=== PATIENT | male | born 1930 | race African-American/Black ===

== ENCOUNTER 2017-06-30 21:06 | Emergency (ER) | payer MEDICARE, MEDICAID ==
[~2017-06-30] VITALS: Ht 162.6 cm; Wt 61.3 kg
[~2017-06-30 21:06] MED LIST: DETROL LA4 MG OR; FLOMAX0.4 M1 OR; LIPITOR20 M1 PO; METO50TA52 PO; NORVASC5 MG PO; PLAVIX75 MG PO; RAPAFLO8 MG PO; SB ASA LOW81 MG PO; TOPROL XL25 MG PO; ULTRAM50 M1 PO; ULTRAM50 MG OR; ZOCOR20 MG OR
[2017-06-30 23:03] LABS: HEMATOCRIT 42.9 % (39.0-50.0); HEMOGLOBIN 13.9 g/dl (14.0-18.0); IMMATURE GRANULOCYTES 0.3 % (0.0-1.0); MEAN CELL VOLUME 91.3 fL CALC (80.0-100.0); MEAN CORPUSCULAR HGB 29.6 pG CALC (26.0-32.0); MEAN CORPUSCULAR HGB CONC 32.4 g/L CALC (32.0-36.0); NEUT# 2.43 thou/uL (1.82-7.42); RED BLOOD COUNT 4.7 mill/uL (4.70-6.10); RED CELL DISTRI WIDTH 12.6 % (11.5-15.5)
[2017-06-30 23:13] LABS: ALBUMIN 4.5 g/dL (3.2-5.0); ALKALINE PHOSPHATASE 81 u/l (38-126); AMYLASE 154 u/l (30-110); ANION GAP 14 (6-22 (CALC)); BUN 20 mg/dL (8-23); BUN/CREATININE RATIO 16 (12-20 (CALC)); CALCIUM 9.7 mg/dL (8.4-10.2); CARBON DIOXIDE 33 mmol/l (22-30); CHLORIDE 97 mmol/l (95-108); CREATININE 1.3 mg/dL (0.7-1.3); GFR 52 ML/MIN (>=60 (CALC)); GFR FOR AFR.AMER. > 60 ML/MIN (>=60 (CALC)); GLUCOSE 111 mg/dL (82-115); LIPASE 64 u/l (23-300); POTASSIUM 5.1 mmol/l (3.5-5.1); SGOT/AST 45 u/l (19-48); SGPT/ALT 31 u/l (11-66); SODIUM 140 mmol/l (137-146); TOTAL PROTEIN 8.1 g/dL (6.3-8.2)
[2017-06-30 23:40] VITALS: BP 139/90
== END 2017-06-30 23:40 | disposition left against medical advice (07) ==
LOC: ED 21:06
PROVIDERS: Emergency Medicine
DX: R79.89 Other specified abnormal findings of blood chemistry (principal); I10 Essential (primary) hypertension; K59.00 Constipation, unspecified; Z91.19 Patient's noncompliance with other medical treatment and regimen; R94.31 Abnormal electrocardiogram [ECG] [EKG]; I25.2 Old myocardial infarction

== ENCOUNTER 2018-03-27 19:15 | Emergency (ER) | payer MEDICARE, MEDICAID ==
[~2018-03-27] VITALS: Ht 162.6 cm; Wt 59.1 kg
[2018-03-27] MEDS ORDERED: DOXAZOSIN MESYLA2 MG PO (19:35)
[2018-03-27] MEDS ORDERED: TRAMADOL HCL50 MG PO (19:35)
[2018-03-27] MEDS ORDERED: METO50TA52 PO (19:36)
[2018-03-27 19:45] LABS: HEMATOCRIT 37.8 % (39.0-50.0); IMMATURE GRANULOCYTES 0.4 % (0.0-1.0); MEAN CELL VOLUME 95.5 fL CALC (80.0-100.0); MEAN CORPUSCULAR HGB 29.8 pG CALC (26.0-32.0); MEAN CORPUSCULAR HGB CONC 31.2 g/L CALC (32.0-36.0); NEUT# 1.51 thou/uL (1.82-7.42); RED BLOOD COUNT 3.96 mill/uL (4.70-6.10); RED CELL DISTRI WIDTH 13.2 % (11.5-15.5)
[2018-03-27 19:46] LABS: HEMOGLOBIN 11.8 g/dl (14.0-18.0)
[2018-03-27 19:58] LABS: ALBUMIN 3.8 g/dL (3.2-5.0); ALKALINE PHOSPHATASE 58 u/l (38-126); ANION GAP 8 (6-22 (CALC)); BILIRUBIN, TOTAL 0.4 mg/dL (0.0-1.4); BUN 18 mg/dL (8-23); BUN/CREATININE RATIO 15 (12-20 (CALC)); CARBON DIOXIDE 37 mmol/l (22-30); CHLORIDE 101 mmol/l (95-108); CREATININE 1.2 mg/dL (0.7-1.3); GFR 57 ML/MIN (>=60 (CALC)); GFR FOR AFR.AMER. > 60 ML/MIN (>=60 (CALC)); POTASSIUM 4.1 mmol/l (3.5-5.1); SGOT/AST 31 u/l (19-48); SGPT/ALT 35 u/l (11-66); SODIUM 142 mmol/l (137-146); TOTAL PROTEIN 7.2 g/dL (6.3-8.2)
[2018-03-27 20:04] LABS: ACT PARTIAL THROMBO TIME 24.3 SECONDS (20.0-32.5); D-DIMER 3.48 mg/L (0.19-0.60); PROTHROMBIN TIME 11.6 SECONDS (9.0-12.5)
[2018-03-27 20:10] LABS: MYOGLOBIN 83 ng/mL (0 - 121)
[2018-03-27] MEDS ORDERED: PREDNISONE10 MG PO (21:34)
[2018-03-27] MEDS ORDERED: VENTOLIN HFA IN (21:34)
[2018-03-27 22:16] VITALS: BP 184/104
== END 2018-03-27 22:17 | disposition home or self-care (01) ==
LOC: ED 19:15
PROVIDERS: Family Medicine
DX: J06.9 Acute upper respiratory infection, unspecified (principal); J98.01 Acute bronchospasm; I10 Essential (primary) hypertension; I48.91 Unspecified atrial fibrillation; M19.90 Unspecified osteoarthritis, unspecified site; N40.0 Benign prostatic hyperplasia without lower urinary tract symptoms; Z86.73 Personal history of transient ischemic attack (TIA), and cerebral infarction without residual deficits; Z95.5 Presence of coronary angioplasty implant and graft; R06.02 Shortness of breath
CPT/HCPCS: Q9967

== ENCOUNTER 2018-06-10 05:08 | Emergency (ER) | payer MEDICARE, MEDICAID ==
[~2018-06-10] VITALS: Ht 160 cm; Wt 61.4 kg
[~2018-06-10 05:08] MED LIST changes: +DOXAZOSIN MESYLA2 MG PO; +PREDNISONE10 MG PO; +TRAMADOL HCL50 MG PO; +VENTOLIN HFA IN
--- NOTE | 2018-06-10 05:25 | NUR ---
BREATHING TREATMENT GIVEN.
[2018-06-10 05:57] LABS: HEMATOCRIT 36.1 % (39.0-50.0); HEMOGLOBIN 11.5 g/dl (14.0-18.0); IMMATURE GRANULOCYTES 0.3 % (0.0-5.0); MEAN CELL VOLUME 93.3 fL CALC (80.0-100.0); MEAN CORPUSCULAR HGB 29.7 pG CALC (26.0-32.0); MEAN CORPUSCULAR HGB CONC 31.9 g/L CALC (32.0-36.0); NEUT# 1.47 thou/uL (1.82-7.42); RED BLOOD COUNT 3.87 mill/uL (4.70-6.10); RED CELL DISTRI WIDTH 13.1 % (11.5-15.5)
[2018-06-10 06:11] LABS: ALKALINE PHOSPHATASE 58 u/l (38-126); ANION GAP 13 (6-22 (CALC)); BILIRUBIN, TOTAL 0.3 mg/dL (0.0-1.4); BUN 34 mg/dL (8-23); BUN/CREATININE RATIO 19 (12-20 (CALC)); CARBON DIOXIDE 34 mmol/l (22-30); CHLORIDE 99 mmol/l (95-108); CREATININE 1.8 mg/dL (0.7-1.3); GFR 36 ML/MIN (>=60 (CALC)); GFR FOR AFR.AMER. 44 ML/MIN (>=60 (CALC)); SGOT/AST 29 u/l (19-48); SGPT/ALT 36 u/l (11-66); SODIUM 141 mmol/l (137-146); TOTAL PROTEIN 7.2 g/dL (6.3-8.2)
[2018-06-10 06:23] LABS: MYOGLOBIN 93 ng/mL (0 - 121)
[2018-06-10] MEDS ORDERED: MEDDOSEPAK PO (06:54)
[2018-06-10] MEDS ORDERED: CEPHALEXIN500 M1 PO (06:54)
[2018-06-10 06:56] VITALS: BP 154/78
== END 2018-06-10 07:21 | disposition home or self-care (01) ==
LOC: ED 05:08
PROVIDERS: Emergency Medicine
DX: J44.1 Chronic obstructive pulmonary disease with (acute) exacerbation (principal); I10 Essential (primary) hypertension; M19.90 Unspecified osteoarthritis, unspecified site; I48.91 Unspecified atrial fibrillation; Z95.5 Presence of coronary angioplasty implant and graft; Z86.73 Personal history of transient ischemic attack (TIA), and cerebral infarction without residual deficits

== ENCOUNTER 2018-11-01 07:14 | Emergency (ER) | payer MEDICARE, MEDICAID ==
[~2018-11-01] VITALS: Ht 160 cm; Wt 70.5 kg
[~2018-11-01 07:14] MED LIST changes: +CEPHALEXIN500 M1 PO; +MEDDOSEPAK PO
[2018-11-01 07:56] LABS: HEMATOCRIT 37.2 % (39.0-50.0); HEMOGLOBIN 11.9 g/dl (14.0-18.0); IMMATURE GRANULOCYTES 0.2 % (0.0-5.0); MEAN CELL VOLUME 94.4 fL CALC (80.0-100.0); MEAN CORPUSCULAR HGB 30.2 pG CALC (26.0-32.0); NEUT# 2.86 thou/uL (1.82-7.42); RED BLOOD COUNT 3.94 mill/uL (4.70-6.10); RED CELL DISTRI WIDTH 12.7 % (11.5-15.5)
[2018-11-01 08:13] LABS: ALBUMIN 4.1 g/dL (3.2-5.0); ALKALINE PHOSPHATASE 72 u/l (38-126); ANION GAP 13 (6-22 (CALC)); BILIRUBIN, TOTAL 0.5 mg/dL (0.0-1.4); BUN 20 mg/dL (8-23); BUN/CREATININE RATIO 13 (12-20 (CALC)); CARBON DIOXIDE 29 mmol/l (22-30); CHLORIDE 102 mmol/l (95-108); CREATININE 1.6 mg/dL (0.7-1.3); GFR 41 ML/MIN (>=60 (CALC)); GFR FOR AFR.AMER. 50 ML/MIN (>=60 (CALC)); POTASSIUM 4.2 mmol/l (3.5-5.1); SGOT/AST 28 u/l (19-48); SODIUM 140 mmol/l (137-146); TOTAL PROTEIN 7.5 g/dL (6.3-8.2)
[2018-11-01 09:37] VITALS: BP 157/73
== END 2018-11-01 09:48 | disposition home or self-care (01) ==
LOC: ED 07:14
PROVIDERS: Emergency Medicine
DX: T36.1X1A Poisoning by cephalosporins and other beta-lactam antibiotics, accidental (unintentional), initial encounter (principal); I10 Essential (primary) hypertension; M19.90 Unspecified osteoarthritis, unspecified site; I48.91 Unspecified atrial fibrillation; I69.354 Hemiplegia and hemiparesis following cerebral infarction affecting left non-dominant side; Z95.5 Presence of coronary angioplasty implant and graft

== ENCOUNTER 2019-02-06 23:10 | Emergency (ER) | payer MEDICARE, MEDICAID ==
[~2019-02-06] VITALS: Ht 160 cm; Wt 67.0 kg
[2019-02-07 00:02] LABS: HEMATOCRIT 36.4 % (39.0-50.0); HEMOGLOBIN 11.3 g/dl (14.0-18.0); IMMATURE GRANULOCYTES 0.3 % (0.0-5.0); MEAN CORPUSCULAR HGB 28.3 pG CALC (26.0-32.0); PLATELET COUNT 174 thou/uL (130-400); RED CELL DISTRI WIDTH 13.2 % (11.5-15.5)
[2019-02-07 00:22] LABS: ALBUMIN 3.9 g/dL (3.2-5.0); BILIRUBIN, TOTAL 0.3 mg/dL (0.0-1.4); CREATININE 1.6 mg/dL (0.7-1.3); POTASSIUM 4.6 mmol/l (3.5-5.1); TOTAL PROTEIN 7.1 g/dL (6.3-8.2)
[2019-02-07 00:28] LABS: MANUAL DIFFERENTIAL YES
[2019-02-07 00:29] LABS: OTHER CELL TYPE 3; PLATELET ESTIMATE NORMAL
[2019-02-07] MEDS ORDERED: FINASTERIDE5 MG PO (00:30)
[2019-02-07] MEDS ORDERED: SPIRONOLACT25 MG PO (00:30)
[2019-02-07] MEDS ORDERED: FUROSEMIDE20 MG PO (00:31)
[2019-02-07] MEDS ORDERED: LOSARTAN POT50 MG PO (00:32)
[2019-02-07] MEDS ORDERED: MONTELUKAST SOD10 MG PO (00:32)
[2019-02-07] MEDS ORDERED: CARVEDILOL25 MG PO (00:33)
[2019-02-07] MEDS ORDERED: PRAVASTATIN SOD20 MG PO (00:33)
[2019-02-07 04:53] LABS: URINE BILIRUBIN - DIPSTICK NEGATIVE (NEGATIVE); URINE BLOOD DIPSTICK MODERATE (NEGATIVE); URINE COLOR YELLOW; URINE GLUCOSE - DIPSTICK NEGATIVE (NEGATIVE); URINE KETONE NEGATIVE (NEGATIVE); URINE LEUK ESTERASE NEGATIVE (NEGATIVE); URINE NITRITE - DIPSTICK NEGATIVE (Negative); URINE PH 5.5 (4.5-8.0); URINE PROTEIN - DIPSTICK NEGATIVE (NEG-TRACE); URINE UROBILINOGEN - DIPSTICK 0.2 E.U./dL (0.2)
[2019-02-07 05:04] LABS: URINE BACTERIA RARE hpf; URINE SQUAMOUS EPITHELIAL CELL RARE EPI/hpf (0-FEW); URINE WBC 0-2 WBC/hpf (0-5)
[2019-02-07 05:32] VITALS: BP 178/92
== END 2019-02-07 05:30 | disposition home or self-care (01) ==
LOC: ED 23:10
PROVIDERS: Emergency Medicine
DX: R53.1 Weakness (principal); N28.9 Disorder of kidney and ureter, unspecified; R50.9 Fever, unspecified; I48.91 Unspecified atrial fibrillation; I10 Essential (primary) hypertension; N40.0 Benign prostatic hyperplasia without lower urinary tract symptoms; Z95.5 Presence of coronary angioplasty implant and graft

== ENCOUNTER 2019-02-14 19:18 | Emergency (ER) | payer MEDICARE, MEDICAID ==
[~2019-02-14] VITALS: Ht 160 cm; Wt 84.0 kg
[~2019-02-14 19:18] MED LIST changes: +CARVEDILOL25 MG PO; +FINASTERIDE5 MG PO; +FUROSEMIDE20 MG PO; +LOSARTAN POT50 MG PO; +MONTELUKAST SOD10 MG PO; +PRAVASTATIN SOD20 MG PO; +SPIRONOLACT25 MG PO
[2019-02-14 19:55] LABS: HEMATOCRIT 36.3 % (39.0-50.0); HEMOGLOBIN 11.1 g/dl (14.0-18.0); IMMATURE GRANULOCYTES 0.8 % (0.0-5.0); MEAN CORPUSCULAR HGB 27.8 pG CALC (26.0-32.0); MEAN CORPUSCULAR HGB CONC 30.6 g/L CALC (32.0-36.0); NEUT# 1.89 thou/uL (1.82-7.42); RED BLOOD COUNT 3.99 mill/uL (4.70-6.10); RED CELL DISTRI WIDTH 12.9 % (11.5-15.5)
[2019-02-14 20:38] LABS: ALBUMIN 3.6 g/dL (3.2-5.0); BILIRUBIN, TOTAL 0.4 mg/dL (0.0-1.4); CREATININE 1.7 mg/dL (0.7-1.3); POTASSIUM 4.2 mmol/l (3.5-5.1); TOTAL PROTEIN 6.6 g/dL (6.3-8.2)
[2019-02-14 20:53] LABS: URINE BILIRUBIN - DIPSTICK NEGATIVE (NEGATIVE); URINE BLOOD DIPSTICK TRACE-INTACT (NEGATIVE); URINE COLOR YELLOW; URINE GLUCOSE - DIPSTICK NEGATIVE (NEGATIVE); URINE KETONE NEGATIVE (NEGATIVE); URINE LEUK ESTERASE NEGATIVE (NEGATIVE); URINE NITRITE - DIPSTICK NEGATIVE (Negative); URINE PH 6.5 (4.5-8.0); URINE PROTEIN - DIPSTICK NEGATIVE (NEG-TRACE); URINE UROBILINOGEN - DIPSTICK 0.2 E.U./dL (0.2)
[2019-02-14 20:54] LABS: BARBITURATES NEGATIVE (NEGATIVE); COCAINE NEGATIVE (NEGATIVE); METHADONE NEGATIVE (NEGATIVE); OXCYCODONE NEGATIVE (NEGATIVE); TETRAHYDROCANNABIONOL NEGATIVE (NEGATIVE); TRICYLIC ANTIDEPRESSANTS NEGATIVE (NEGATIVE)
[2019-02-14 21:05] VITALS: BP 148/75
== END 2019-02-14 21:20 | disposition home or self-care (01) ==
LOC: ED 19:18
PROVIDERS: Family Medicine
DX: R40.4 Transient alteration of awareness (principal); R94.31 Abnormal electrocardiogram [ECG] [EKG]; I10 Essential (primary) hypertension; I48.91 Unspecified atrial fibrillation; I69.354 Hemiplegia and hemiparesis following cerebral infarction affecting left non-dominant side

== ENCOUNTER 2019-02-17 13:37 | Inpatient (IN) | payer MEDICARE, MEDICAID ==
[~2019-02-17] VITALS: Ht 160 cm; Wt 68.6 kg
[2019-02-17 14:07] LABS: HEMATOCRIT 36.5 % (39.0-50.0); HEMOGLOBIN 11.4 g/dl (14.0-18.0); IMMATURE GRANULOCYTES 0.8 % (0.0-5.0); MEAN CELL VOLUME 89.2 fL CALC (80.0-100.0); MEAN CORPUSCULAR HGB 27.9 pG CALC (26.0-32.0); MEAN CORPUSCULAR HGB CONC 31.2 g/L CALC (32.0-36.0); NEUT# 19.72 thou/uL (1.82-7.42); RED BLOOD COUNT 4.09 mill/uL (4.70-6.10); RED CELL DISTRI WIDTH 13.3 % (11.5-15.5)
[2019-02-17 14:32] LABS: ALBUMIN 3.6 g/dL (3.2-5.0); CREATININE 2.5 mg/dL (0.7-1.3); MAGNESIUM 2.5 mg/dL (1.6-2.3); POTASSIUM 3.8 mmol/l (3.5-5.1); TOTAL PROTEIN 6.9 g/dL (6.3-8.2)
[2019-02-17 14:35] LABS: BILIRUBIN, TOTAL 0.6 mg/dL (0.0-1.4)
[2019-02-17 14:36] LABS: URINE BILIRUBIN - DIPSTICK NEGATIVE (NEGATIVE); URINE BLOOD DIPSTICK LARGE (NEGATIVE); URINE COLOR YELLOW; URINE GLUCOSE - DIPSTICK NEGATIVE (NEGATIVE); URINE KETONE NEGATIVE (NEGATIVE); URINE PROTEIN - DIPSTICK TRACE mg/dL (NEG-TRACE); URINE UROBILINOGEN - DIPSTICK 0.2 E.U./dL (0.2)
[2019-02-17 14:48] LABS: URINE LEUK ESTERASE MODERATE (NEGATIVE); URINE NITRITE - DIPSTICK POSITIVE (Negative)
[2019-02-17 14:49] LABS: URINE WBC 50-100 WBC/hpf (0-5)
[2019-02-17 14:50] LABS: URINE BACTERIA FEW hpf
[2019-02-17 15:03] LABS: TSH, 3RD GENERATION 0.56 uIU/mL (0.47 - 4.68)
[2019-02-17 16:54] VITALS: BP 172/98
[2019-02-17 18:32] VITALS: BP 170/86
[2019-02-17 19:09] VITALS: BP 156/79
[2019-02-17 23:40] VITALS: BP 155/83
[2019-02-18] VITALS (7 sets, daily range): BP systolic 154–180; BP diastolic 72–95
[2019-02-18 05:43] LABS: ALBUMIN 3.4 g/dL (3.2-5.0); BILIRUBIN, TOTAL 0.6 mg/dL (0.0-1.4); CREATININE 2.2 mg/dL (0.7-1.3); MAGNESIUM 2.5 mg/dL (1.6-2.3); POTASSIUM 3.8 mmol/l (3.5-5.1); TOTAL PROTEIN 6.5 g/dL (6.3-8.2)
[2019-02-18 05:44] LABS: IMMATURE GRANULOCYTES 0.7 % (0.0-5.0); MEAN CELL VOLUME 89.2 fL CALC (80.0-100.0); MEAN CORPUSCULAR HGB 28.2 pG CALC (26.0-32.0); MEAN CORPUSCULAR HGB CONC 31.6 g/L CALC (32.0-36.0); NEUT# 15.98 thou/uL (1.82-7.42); RED BLOOD COUNT 4.26 mill/uL (4.70-6.10); RED CELL DISTRI WIDTH 13.3 % (11.5-15.5)
[2019-02-19] VITALS (7 sets, daily range): BP systolic 129–175; BP diastolic 59–92
[2019-02-19 05:10] LABS: HEMATOCRIT 37.3 % (39.0-50.0); HEMOGLOBIN 11.6 g/dl (14.0-18.0); IMMATURE GRANULOCYTES 0.5 % (0.0-5.0); MEAN CELL VOLUME 90.1 fL CALC (80.0-100.0); MEAN CORPUSCULAR HGB CONC 31.1 g/L CALC (32.0-36.0); PLATELET COUNT 172 thou/uL (130-400); RED BLOOD COUNT 4.14 mill/uL (4.70-6.10); RED CELL DISTRI WIDTH 13.2 % (11.5-15.5)
[2019-02-19 05:41] LABS: BILIRUBIN, TOTAL 0.7 mg/dL (0.0-1.4); CREATININE 1.7 mg/dL (0.7-1.3); MAGNESIUM 2.4 mg/dL (1.6-2.3); POTASSIUM 3.9 mmol/l (3.5-5.1); TOTAL PROTEIN 6.2 g/dL (6.3-8.2)
[2019-02-19 06:02] LABS: MANUAL DIFFERENTIAL YES
[2019-02-19 06:03] LABS: BAND 1 % (0-8); OTHER CELL TYPE 6
[2019-02-20] VITALS (7 sets, daily range): BP systolic 150–189; BP diastolic 74–97
[2019-02-20 05:30] LABS: HEMATOCRIT 37.1 % (39.0-50.0); HEMOGLOBIN 11.7 g/dl (14.0-18.0); IMMATURE GRANULOCYTES 0.5 % (0.0-5.0); MEAN CELL VOLUME 89.4 fL CALC (80.0-100.0); MEAN CORPUSCULAR HGB 28.2 pG CALC (26.0-32.0); MEAN CORPUSCULAR HGB CONC 31.5 g/L CALC (32.0-36.0); NEUT# 4.62 thou/uL (1.82-7.42); RED BLOOD COUNT 4.15 mill/uL (4.70-6.10); RED CELL DISTRI WIDTH 13.2 % (11.5-15.5)
[2019-02-20 06:00] LABS: ALBUMIN 2.9 g/dL (3.2-5.0); BILIRUBIN, TOTAL 0.7 mg/dL (0.0-1.4); CREATININE 1.6 mg/dL (0.7-1.3); MAGNESIUM 2.3 mg/dL (1.6-2.3); POTASSIUM 3.8 mmol/l (3.5-5.1)
[2019-02-21 06:11] LABS: CREATININE 1.4 mg/dL (0.7-1.3); POTASSIUM 3.8 mmol/l (3.5-5.1)
[2019-02-21 07:24] VITALS: BP 157/87
[2019-02-21 14:55] VITALS: BP 183/104
[2019-02-21 15:37] VITALS: BP 142/73
[2019-02-21 19:12] VITALS: BP 143/70
[2019-02-22 04:00] VITALS: BP 157/80
[2019-02-22 05:14] LABS: HEMATOCRIT 33.9 % (39.0-50.0); HEMOGLOBIN 10.7 g/dl (14.0-18.0); IMMATURE GRANULOCYTES 1.2 % (0.0-5.0); MEAN CELL VOLUME 87.8 fL CALC (80.0-100.0); MEAN CORPUSCULAR HGB 27.7 pG CALC (26.0-32.0); MEAN CORPUSCULAR HGB CONC 31.6 g/L CALC (32.0-36.0); NEUT# 2.55 thou/uL (1.82-7.42); RED BLOOD COUNT 3.86 mill/uL (4.70-6.10)
[2019-02-22 05:36] LABS: CREATININE 1.4 mg/dL (0.7-1.3); MAGNESIUM 2.2 mg/dL (1.6-2.3); POTASSIUM 3.5 mmol/l (3.5-5.1)
[2019-02-22 08:02] VITALS: BP 145/80
[2019-02-22 14:43] VITALS: BP 154/75
[2019-02-22 19:40] VITALS: BP 158/77
[2019-02-23] VITALS (7 sets, daily range): BP systolic 130–168; BP diastolic 69–88
[2019-02-23 15:33] LABS: URINE BILIRUBIN - DIPSTICK NEGATIVE (NEGATIVE); URINE BLOOD DIPSTICK NEGATIVE (NEGATIVE); URINE COLOR YELLOW; URINE GLUCOSE - DIPSTICK NEGATIVE (NEGATIVE); URINE KETONE NEGATIVE (NEGATIVE); URINE LEUK ESTERASE NEGATIVE (Negative); URINE NITRITE - DIPSTICK NEGATIVE (Negative); URINE PROTEIN - DIPSTICK NEGATIVE (NEG-TRACE); URINE SPECIFIC GRAVITY 1.015; URINE UROBILINOGEN - DIPSTICK 0.2 E.U./dL (0.2)
[2019-02-23 15:40] LABS: URINE CLARITY CLEAR
[2019-02-24 04:09] VITALS: BP 164/82
[2019-02-24 05:36] LABS: HEMATOCRIT 35.5 % (39.0-50.0); HEMOGLOBIN 11.2 g/dl (14.0-18.0); IMMATURE GRANULOCYTES 2.5 % (0.0-5.0); MEAN CELL VOLUME 87.4 fL CALC (80.0-100.0); MEAN CORPUSCULAR HGB 27.6 pG CALC (26.0-32.0); MEAN CORPUSCULAR HGB CONC 31.5 g/L CALC (32.0-36.0); NEUT# 3.52 thou/uL (1.82-7.42); RED BLOOD COUNT 4.06 mill/uL (4.70-6.10); RED CELL DISTRI WIDTH 13.2 % (11.5-15.5)
[2019-02-24 06:00] LABS: ALBUMIN 2.9 g/dL (3.2-5.0); ALKALINE PHOSPHATASE 74 u/l (38-126); ANION GAP 12 (6-22 (CALC)); BUN 22 mg/dL (8-23); BUN/CREATININE RATIO 17 (12-20 (CALC)); CARBON DIOXIDE 23 mmol/l (22-30); CHLORIDE 107 mmol/l (95-108); CREATININE 1.3 mg/dL (0.7-1.3); GFR 52 ML/MIN (>=60 (CALC)); GFR FOR AFR.AMER. > 60 ML/MIN (>=60 (CALC)); POTASSIUM 3.5 mmol/l (3.5-5.1); SODIUM 138 mmol/l (137-146); TOTAL PROTEIN 6.1 g/dL (6.3-8.2)
[2019-02-24 06:01] LABS: BILIRUBIN, TOTAL 0.4 mg/dL (0.0-1.4); SGOT/AST 40 u/l (19-48)
[2019-02-24 09:15] VITALS: BP 138/70
[2019-02-24 14:15] VITALS: BP 138/77
[2019-02-24 16:00] VITALS: BP 159/78
[2019-02-24 19:57] VITALS: BP 159/78
== END 2019-02-24 20:00 | DRG 871 ==
LOC: ED 13:37 → ED-I 15:27 → ED 15:35 → MS2 15:36
PROVIDERS: Family Medicine; Nurse Practitioner Family; ADMIT Internal Medicine Nephrology; ATTEND Internal Medicine Nephrology
DX: A41.9 Sepsis, unspecified organism (principal); G93.41 Metabolic encephalopathy; N39.0 Urinary tract infection, site not specified; N17.9 Acute kidney failure, unspecified; I69.951 Hemiplegia and hemiparesis following unspecified cerebrovascular disease affecting right dominant side; G93.49 Other encephalopathy; R65.20 Severe sepsis without septic shock; I12.9 Hypertensive chronic kidney disease with stage 1 through stage 4 chronic kidney disease, or unspecified chronic kidney disease; N18.3 Chronic kidney disease, stage 3 (moderate); I69.398 Other sequelae of cerebral infarction; E86.0 Dehydration; I48.91 Unspecified atrial fibrillation; E78.5 Hyperlipidemia, unspecified; I25.10 Atherosclerotic heart disease of native coronary artery without angina pectoris; I27.20 Pulmonary hypertension, unspecified; D64.9 Anemia, unspecified; M19.90 Unspecified osteoarthritis, unspecified site; M89.8X9 Other specified disorders of bone, unspecified site; B96.4 Proteus (mirabilis) (morganii) as the cause of diseases classified elsewhere; Z95.5 Presence of coronary angioplasty implant and graft

== ENCOUNTER 2020-04-29 13:38 | Inpatient (IN) | payer MEDICARE, MEDICAID ==
[2020-04-29] VITALS (10 sets, daily range): BP systolic 108–163; BP diastolic 59–86
[~2020-04-29] VITALS: Ht 160 cm; Wt 59.0 kg
--- NOTE | 2020-04-29 13:38 | NUR ---
PATIENT TO ROOM VIA EMS STRETCHER. PT OPENS EYES TO VERBAL STIMULI.
--- NOTE | 2020-04-29 14:04 | NUR ---
PATIENT TO CT VIA STRETCHER.
--- NOTE | 2020-04-29 14:05 | NUR ---
PATIENT'S UNABLE TO RECONCILE MEDICATIONS AT THIS TIME.
[2020-04-29 14:12] LABS: HEMATOCRIT 32.7 % (39.0-50.0); HEMOGLOBIN 10.1 g/dl (14.0-18.0); IMMATURE GRANULOCYTES 0.4 % (0.0-5.0); MEAN CELL VOLUME 90.3 fL CALC (80.0-100.0); MEAN CORPUSCULAR HGB 27.9 pG CALC (26.0-32.0); MEAN CORPUSCULAR HGB CONC 30.9 g/dL CAL (32.0-36.0); NEUT# 2.61 thou/uL (1.82-7.42); RED BLOOD COUNT 3.62 mill/uL (4.70-6.10); RED CELL DISTRI WIDTH 14.2 % (11.5-15.5)
--- NOTE | 2020-04-29 14:20 | NUR ---
PT HISTORY DIFFICULT TO OBTAIN. REPORTS PT ATE BREAKFAST NORMALLY AT 0800 BUT THEN DID NOT WANT TO GET OUT OF BED WHEN SHE GOT HOME AFTER [place]ORMON. SHE CALLED THE AMBULANCE BECAUSE SHE COULD NOT GET HIM TO ANSWER HER AT 1300 AND THIS IS DIFFERENT THAN NORMAL. PT OPENS EYES TO PAINFUL STIMULI BUT DOES NOT FOLLOW FINGER WITH EYES. IS UNABLE TO FOLLOW INSTRUCTIONS FOR NIHSS. PT SKIN PINK WARM AND DRY. CHANGED TO GOWN. MONITORS IN PLACE
[2020-04-29 14:26] LABS: ALBUMIN 3.2 g/dL (3.2-5.0); ALKALINE PHOSPHATASE 84 u/l (38-126); BILIRUBIN, TOTAL 0.4 mg/dL (0.0-1.4); BUN 30 mg/dL (8-23); BUN/CREATININE RATIO 20 (12-20 (CALC)); CARBON DIOXIDE 30 mmol/l (22-30); CHLORIDE 98 mmol/l (95-108); CREATININE 1.5 mg/dL (0.7-1.3); ETHYL ALCOHOL 0 mg/dl (0-30); GFR 44 ML/MIN (>=60 (CALC)); GFR FOR AFR.AMER. 53 ML/MIN (>=60 (CALC)); LIPASE 145 u/l (23-300); SGOT/AST 30 u/l (19-48); TOTAL PROTEIN 6.2 g/dL (6.3-8.2)
[2020-04-29 14:27] LABS: ANION GAP 9 (6-22 (CALC)); POTASSIUM 3.8 mmol/l (3.5-5.1); SODIUM 133 mmol/l (137-146)
[2020-04-29 14:36] LABS: ACT PARTIAL THROMBO TIME 23.9 SECONDS (20.0-32.5); INTERNATIONAL NORMALIZED RATIO 1.1 RATIO (0.7-1.3); PROTHROMBIN TIME 10.7 SECONDS (9.0-12.5)
[2020-04-29 14:38] LABS: MYOGLOBIN 75 ng/mL (0 - 121)
--- NOTE | 2020-04-29 15:07 | NUR ---
CATH URINE SPECIMEN OBTAINED
[2020-04-29 15:18] LABS: URINE BILIRUBIN - DIPSTICK NEGATIVE (NEGATIVE); URINE BLOOD DIPSTICK NEGATIVE (NEGATIVE); URINE COLOR YELLOW; URINE GLUCOSE - DIPSTICK NEGATIVE (NEGATIVE); URINE KETONE NEGATIVE (NEGATIVE); URINE LEUK ESTERASE NEGATIVE (NEGATIVE); URINE NITRITE - DIPSTICK NEGATIVE (Negative); URINE PH 6.5 (4.5-8.0); URINE PROTEIN - DIPSTICK NEGATIVE (NEG-TRACE); URINE UROBILINOGEN - DIPSTICK 0.2 E.U./dL (0.2)
--- NOTE | 2020-04-29 16:31 | NUR ---
PHARMACY CONSULT ORDERED
--- NOTE | 2020-04-29 16:36 | NUR ---
PT OPENS EYES TO VERBAL STIMULI AND IS ORIENTED TO SELF. SKIN PINK WARM AND DRY. RESP UNLABORED.
--- NOTE | 2020-04-29 16:46 | NUR ---
REPORT CALLED TO [facility]
--- NOTE | 2020-04-29 17:00 | NUR ---
PT TAKEN VIA STRETCHER TO ICU. MONITOR IN PLACE
--- NOTE | 2020-04-29 17:00 | NUR ---
PT ADMITTED TO ICU BED 7 FROM ED WITH DX. CVA VIA STRETCHER. PT TRANSFERRED FROM STRETCHER TO BED BY STAFF. PT OPENS EYES, ALERT , ABLE TO FOLLOW SIMPLE COMMANDS LIKE SQUEEZE BILAT HANDS SOFTLY. PT NON-VERBAL, MAKES SOME NOISES BUT UNABLE TO DECERN WHAT IS SAYING. NSR ON TELEMETRY WITH OCCAS. PVC'S, HR 64. RESPIRATIONS EVEN/UNLABORED. SA02@97% RA. ABDOMEN SOFT/NON-TENDER, BSX4 ACTIVE. PT INC OF URINE WITH BRIEF IN PLACE, CDI. BUTTOCKS WITH DRESSING CDI. BED ALARM IN PLACE, PT ORIENTED TO BED, UNIT AND CALL LIGHT. WILL MONITOR CLOSELY.
--- NOTE | 2020-04-29 20:20 | NUR ---
PATIENT AWAKENS EASILY WHEN SPOKEN TO, PT ABLE TO FOLLOW SOME COMMANDS, SUCH , MIXER MACHINE FEEDER MY FINGERS, TAKE DEEP BREATHS, SHOW ME YOUR TEETH, PT IS NONVERBAL BUT IS ABLE TO NOD HEAD YES OR NO WHEN ASKED SIMPLE YES/NO QUESTIONS. PT DOES NOT FOLLOW MY FINGERS THOROUGHLY WHEN ASKED TO. PT DOES DO EYE CONTACT WHEN SPOKEN TO. NOTIFIED PATIENT HIS FRIEND FAITH HAD CALLED AND WANTED TO SPEAK TO HIM, I ASKED IF HE KNEW HER HE NODDED HEAD YES, I ASKED HIM IF HE COULD SPEAK TO HER HE NODDED HIS HEAD NO. DID OBSERVE LEFT ARM IS CONTRACTED AND DOES NOT MOVE IT WELL LEFT LEG. ASKED PATIENT IF HE WANTED TO TRY TO DRINK WATER, HE NODDED HEAD NO, I ASKED IF I COULD CLEAN HIS MOUTH WITH WATER AND SWABS, HE NODDED YES, HE DID ALLOW ME TO CLEAN HIS MOUTH. PT DOES DO FACIAL GRIMACES WHEN REPOSITIONING. PT WAS REPSOTIONED TO LEFT SIDE, HEELS ELEVATED AND HEEL PROTECTORS PLACED, PILLOW PLACED UN HEELS WELL. SB/SR WITH PVC'S NOTICED. IV X2 INTACT AND FUNCTIONING PROPERLY. NIH WAS PERFORMED, PT NOT ABLE TO FOLLOW THOROUGHLY, SOME ITEMS SCORED 0. NURSING ASSESSMENT PERFORMED. ON RA, SATS GREATER THAN 95%. NO SOB NOTED. CALL LLIGHT WITHIN REACH.
[2020-04-29 21:00] LABS: MAGNESIUM 2.3 mg/dL (1.6-2.3)
--- NOTE | 2020-04-29 21:44 | NUR ---
NOTIFIED DR IRVING PT REFUSED PO FLUIDS. NO IV FLUIDS NOW. NEW ORDERS RECEIVED FOR IV FLUIDS.
--- NOTE | 2020-04-29 22:30 | NUR ---
PT WAS REPOSITIONED. SCD'S INTACT. HEELS ELEVATED. IV FLUIDS INFUSING NOW. NEW BRIEF APPLIED. I ASKED PATIENT IF HE NEEDED ANYTHING, HE RESPONDED, "IF I NEED ANYTHING?" HE NODDED NO. PT IN NO ACUTE DISTRESS. NEURO CHECK PERFORMED.
[2020-04-30] VITALS (16 sets, daily range): BP systolic 132–183; BP diastolic 68–98
--- NOTE | 2020-04-30 00:24 | NUR ---
PATIENT AWAKENS EASILY WHEN SPOKEN TO. WHEN ASKED IF HE IS OKAY, HE RESPONDS, "I'M FINE." NEURO CHECK PERFORMED. PT IN NO ACUTE DISTRESS. CALL LIGHT WITHIN REACH.
--- NOTE | 2020-04-30 02:30 | NUR ---
PT REPOSITIONED. NEW BRIEF APPLIED. PT AWAKENS EASILY WHEN SPOKEN TO. PT YELLS, "WHAT ARE YOU DOING." I HAD EXPLAINED TO PT WE WERE REPOSITIONING HIM. SCD'S INTCAT, HEELS REMAIN ELEVATED. NEURO CHECK PERFORMED. CALL LIGHT WITHIN REACH.
--- NOTE | 2020-04-30 04:40 | NUR ---
PT REPOSITIONED. NO CHANGING NEEDED. PT DOES BECOME UPSET WHEN WE WAKE HIM UP, PT EXPLAINED EACH TIME HE NEEDS TO BE TURNED TO PREVENT ULCERS, HEELS ARE ELAVTED. SCD'S INTACT. WHEN ASKED HIM IF I CAN DO ANYTHING FOR HIM, HE NODS HIS HEAD NO. CALL LIGHT WITHIN REACH.
--- NOTE | 2020-04-30 06:27 | NUR ---
PT WAS REPOSITIONED. PT AWAKENS EASILY. NEURO CHECK PERFORMED. NO ACUTE DISTRESS SHOWN. CALL LIGHT WITHIN REACH.
--- NOTE | 2020-04-30 06:45 | NUR ---
RECIEVED REPORT FROM ALMA BACON. ASSUMED PT CARE.
--- NOTE | 2020-04-30 08:00 | NUR ---
PT RESTING IN BED, EYES CLOSED. SEE ASSESSMENT. WILL MONITOR.
--- NOTE | 2020-04-30 09:45 | NUR ---
DR. IRVING AT [facility] FOR ASSESSMENT AND TO DISCUSS PLAN OF CARE. NEW ORDERS RECIEVED.
--- NOTE | 2020-04-30 12:09 | NUR ---
PT RESTING IN BED, REPOSITIONED FOR COMFORT. RESPIRATIONS EVEN/UNLABORED. HEEL PROTECTORS REMAIN IN PLACE. WILL MONITOR.
--- NOTE | 2020-04-30 14:00 | NUR ---
pt repositioned, pericare and drsg change to buttocks. pt tolerated well. call light in reach. will monitor.
--- NOTE | 2020-04-30 16:00 | NUR ---
PT CALLED WITH THE CODE, UPDATE GIVEN. DUE TO CALL BACK IN THE AM TO UPDAT MED LIST WITH PHARMACY. PT RESTING IN BED WITH EYS CLOSED. REPOSITIONED. CALL LIGHT IN REACH. WILL MONITOR.
--- NOTE | 2020-04-30 18:06 | NUR ---
PT RESTING IN BED, REPOSTIONED. NO DISTRESS NOTED AT THIS TIME.
--- NOTE | 2020-04-30 19:45 | NUR ---
PATIENT IS AWAKE, ALERT AND ORIENTED TO NAME ONLY. HE DOES ANSWER BACK CLEARLY WHEN SPOKEN TO ALTHOUGH HE HAS AN ACCENT.MEND EXAM PERFORMED. PT IS ABLE TO FOLLOW MOST COMMANDS. HE IS ABLE TO LIFT R-ARM UP, HE TRIES TO LIFT HIS LEFT ARM UP, IT IS CONTRACTED, HE IS ABLE TO MOVE IT AND HAS A WEAK OPTICAL MANAGER BILATERALLY, PT ABLE TO MOVE HIS FEET/LEGS BUT CANNOT LIFT. WHEN I ASK PATIENT HOW HE IS DOING TODAY, HE RESPONDS, "HANGING IN THERE." I ASKED PT IF HE WANTED TO TRY TO DRINK SOME WATER TODAY WELL PUDDING HE NODDED YES. PT SAT IN HIGH RUBIO'S, PT WAS ABLE TO DRINK WATER AND EAT 2 SPOONS OF CHOCOLATE PUDDING WITHOUT ANY DIFFICULTY OR COUGHING. WHEN I ASKED HIM IF HE WANTED MORE HE NODDED NO AND RESPONDED, "I'M OKAY." PT REMAINNS IN HIGH RUBIO'S. MOTH CARE PROVIDED. PT DOES STILL HAVE A SPEECH EVAL PENDING. PASSED HIS BEDSIDE SWALLOW EVAL TONIGHT. PT REPSOITONED, HEEL PROTECTORS IN PLACE, SCD'S IN PLACE. FEET ELEVATED. IV X2 INTACT, IV FLUIDS INFUSING PROPERLY. ON RA, SATS GREATER THAN 95%, HE DOES NOTLIKE PULSE OX ON HIS FINGERS AND TAKES IT OFF. BP 180'S SYSTOLIC. WILL NOTIFY DOCTOR ERGONOMIST. SR ON TELEMETRY, NO PVC'S. DRESING ON BUTTOCKS IS CDI. WILL CONTINUE TO MONITOR.
--- NOTE | 2020-04-30 20:57 | NUR ---
NOTIFIED DR IRVING OF BP 160'S-180'S SYSTOLIC, AND PT PASSED BEDSIDE SWALLOW EVAL. NEW ORDERS RECEIVED, DR IRVING WOULD LIKE PERMISSIVE HYPERTENSION, CAN TREAT IF BP GREATER THAN 200 MMHG. SOFT MECHANICAL DIET ORDERED.
--- NOTE | 2020-04-30 22:35 | NUR ---
PT REPOSITIONED. NEURO CHECK PERFORMED. HOB 30 DEGREES. VS WNL. CALL LIGHT WITHIN REACH.
[2020-05-01] VITALS (14 sets, daily range): BP systolic 122–192; BP diastolic 65–93
--- NOTE | 2020-05-01 01:07 | NUR ---
PT REPSOITIONED. CHANGED BRIEF. FEET ELEVATED, HEEL PROTECTORS IN PLACE. AWAKENS EASILY WITH VERBAL STIMULI.
--- NOTE | 2020-05-01 05:12 | NUR ---
PT REPSOITIONED, CHANGED. HEELS ELEAVTED, HEEL PROTECTORS IN PLACE. BUTTOCKS SUODERM DRESSINGS CDI. NO ACUTE DISTRESS SHOWN. MOUTH CARE PROVIDED. PT ABLE TO DRINK WATER. CALL LIGHT WITHIN REACH.
[2020-05-01 06:33] LABS: HEMATOCRIT 36.6 % (39.0-50.0); IMMATURE GRANULOCYTES 0.3 % (0.0-5.0); MEAN CELL VOLUME 91.5 fL CALC (80.0-100.0); MEAN CORPUSCULAR HGB 27.5 pG CALC (26.0-32.0); MEAN CORPUSCULAR HGB CONC 30.1 g/dL CAL (32.0-36.0); NEUT# 4.9 thou/uL (1.82-7.42); RED CELL DISTRI WIDTH 14.1 % (11.5-15.5)
[2020-05-01 06:57] LABS: ANION GAP 9 (6-22 (CALC)); BUN 21 mg/dL (8-23); BUN/CREATININE RATIO 21 (12-20 (CALC)); CARBON DIOXIDE 23 mmol/l (22-30); CHLORIDE 110 mmol/l (95-108); GFR > 60 ML/MIN (>=60 (CALC)); GFR FOR AFR.AMER. > 60 ML/MIN (>=60 (CALC)); POTASSIUM 3.6 mmol/l (3.5-5.1); SODIUM 138 mmol/l (137-146)
[2020-05-01] MEDS ORDERED: COREG25 MG PO (08:09)
[2020-05-01] MEDS ORDERED: COZAAR50 MG PO (08:09)
[2020-05-01] MEDS ORDERED: FINASTERIDE5 MG PO (08:10)
[2020-05-01] MEDS ORDERED: PRAVASTATIN SOD20 MG PO (08:10)
--- NOTE | 2020-05-01 08:15 | NUR ---
ASSESSMENT COMPLETED. PT. ALERT TO SELF ONLY ALSO ABLE TO FOLLOW COMMANDS AT THIS TIME. LEFT ARM IS CONTRACTED WITH MINIMAL MOVEMENT WELL ONLY MINIMAL MOVEMENT TO LLE POST HX;CVA PER REPORT. PT. ABLE TO MOVE RUE AND RLE WITHOUT DIFFICULTIES. MD AT BEDSIDE. SCD'S IN PLACE TO BLE. IV SITES X2 PATENT. HEEL PROTECTORS IN PLACE. ENCOURAGED TO CALL FOR ANY NEEDS. CALL LIGHT IS IN REACH. WILL CONTINUE TO MONITOR.
--- NOTE | 2020-05-01 09:15 | NUR ---
ST WAS IN TO EVALUATE PT. AND REPORTS SHE IS UNSURE IF HE IS ASPIRATING OR NOT AND WOULD LIKE PT. TO GET A MODIFIED BARIUM SWALLOW ALTHOUGH WE DO NOT DO THESE HERE WELL PT. SHOULD ONLY HAVE WATER AFTER STRICT ORAL CARE AND RECOMMENDS NO PO PILLS WELL ALTERNATIVE NUTRITION. RELAYED THIS MESSAGE TO DR. SALVADOR AND SPOKE WITH RADIOLOGY AND THE ONLY TEST AVAILABLE IS A REGULAR BARIUM SWALLOW. PER OKAY TO ORDER REGULAR BARIUM SWALLOW AND HOLD MEDS AT THIS TIME. WILL PLACE ORDERS IN AND CARRY OUT ORDERS.
--- NOTE | 2020-05-01 09:51 | NUR ---
PT. DOWN TO US.
--- NOTE | 2020-05-01 11:16 | NUR ---
CALLED TWO TIMES WITH NO ANSWER; VOICEMAIL LEFT; WILL AWAIT RETURN PHONE CALL.
--- NOTE | 2020-05-01 11:17 | NUR ---
ST IN AT BEDSIDE AGAIN.
--- NOTE | 2020-05-01 12:45 | NUR ---
PT. DOWN TO MRI AT THIS TIME.
--- NOTE | 2020-05-01 12:59 | NUR ---
1255-PER MRI THEY ARE UNABLE TO DO MRI AT THIS TIME DUE TO PT. REPORTING HE HAS PREVIOULSY HAD BRAIN SURGERY; PT. IS A POOR HISTORIAN THOUGH AND PER CURER ACID DRUM WE WILL NEED TO WAIT UNTIL THE CAN COME IN AND GIVE ACCURATE REPORT OF PMH. ALSO PER RADIOLOGY THEY ARE UNABLE TO DO BARIUM SWALLOW TEST TODAY AND WILL HAVE TO WAIT UNTIL TOMORROW.SPOKE WITH ST AGAIN AND SHE REPORTS RECOMMENDING THE SAME DIET PREVIOUS AND IMAGING PREVIOUS. 1259- NOTIFIED DR. SALVADOR OF THE ABOVE NOTE. PER MD ONLY NEW ORDER IS TO TRY PT. ON THICKENED LIQUIDS AND MAY ADMINISTER PO MEDS. WILL CARRY OUT THESE ORDERS.
--- NOTE | 2020-05-01 13:41 | NUR ---
ATTEMPTED TO GIVE PT. AM MEDS NOW THAT OKAYED IT, PT. WOULD NOT OPEN HIS MOUTH AND REFUSED MEDS. HELD AT THIS TIME.
--- NOTE | 2020-05-01 15:00 | NUR ---
SPOKE WITH AND SHE REPORTS NO KNOWN BRAIN SURGERY DONE ON THIS PT.. IS ASKED TO COME IN TO SIGN PAPERWORK FOR MRI AND REPORTS SHE DOES NOT DRIVE SO SHE WILL HAVE TO CALL AND ASK HER YAZIDISM MEMBER FOR A RIDE AND SEE.
--- NOTE | 2020-05-01 16:15 | NUR ---
IN AT BEDSIDE AND AGAIN TELLING THE SAME STORY FOR WHEN PT. WAS IN [facility]. PER HER KNOWLEDGE PT. DOES NOT HAVE ANY METAL AND HAS NOT HAD ANY BRAIN/HEAD SURGERY. BIOMETRIC TECHNICIAN IN WITH PAPERWORK FOR PT. TO SIGN FOR MRI.
--- NOTE | 2020-05-01 17:15 | NUR ---
CBB AND LINENS CHANGED PER VEHICLE MODIFICATION TECHNICIAN. PT. ALSO CLEANED OF LARGE INCONTINENCE OF URINE. BIALTERAL HEELS ELEVATED.
--- NOTE | 2020-05-01 18:27 | NUR ---
PT. TOLERATED THICKENED LIQUIDS WITHOUT COUGHING OR SPO2 DROPPING.
--- NOTE | 2020-05-01 19:00 | NUR ---
RECEIVED REPORT. BEDRESTING. EYES CLOSED. TURNED AND REPORTITIONED. READILY WAKENS. FOLLOWS INSTRUCTIONS BUT HAS WEAK GRASPS. NO DIFFICULTY SWALLOWING NOTED. NO DROOLING. SBP LESS THAN 160. RESP EVEN AND NONLABORED. NO DISTRESS NOTED. NS INFUSING VA #20 IN RIGHT A/C. SITE APPEARS WNL. N/C PAIN AT SITE
--- NOTE | 2020-05-01 21:00 | NUR ---
TALKATIVE. TOOK HS MEDICATION WITH THICHENED LIQUIDS WELL. DID NOT LIKE SQ IN ABDOMEN. REPEATEDLY ASKED FOR AND WANTED TO KNOW WHERE MY CAR IS. HAS LIMITED USE OF LEFT EXTREMITIES AND HOLDS LEFT HAND WITH RIGHT HAND WHEN TURNING OR REPOSITIONING.
--- NOTE | 2020-05-01 23:00 | NUR ---
BEDRESTING. EYES CLOSED. RESP EVEN AND NONLABORED. NO DISTRESS NOTED
[2020-05-02] VITALS (11 sets, daily range): BP systolic 131–181; BP diastolic 56–90
--- NOTE | 2020-05-02 00:27 | NUR ---
BEDRESTING. COOPERATIVE. READILY AWAKENS WITH VERBAL STIMULI. KNOWS NAME AND DATE OF . ASKS ABOUT REGULARLY. UNSURE OF WHY HE IS IN HOSPITAL. REQUESTS TO GO HOME
--- NOTE | 2020-05-02 00:28 | NUR ---
BEDREST. MOVES UPPER EXTREMITIES AT TIMES. LITTLE MOVEMENT OF LOWER EXTREMITIES. SCD'S IN PLACE WITH HEEL PROTECTORS IN PLACE ON HEELS. PILLOW UNDER CALVES OF LEGS TO KEEP HEELS OFF MATTRESS. TAKES SMALL AMOUNTS OF THICK LIQUIDS FREE OF COUGH
--- NOTE | 2020-05-02 02:00 | NUR ---
BEDRESTING. RESP EVEN AND NONLABORED. READILY WAKENS ROUNDED ON AND WANTS TO GO HOME. SPEECH CLEAR
--- NOTE | 2020-05-02 04:00 | NUR ---
BEDRESTING. FOLLOWS MOST REQUESTS. SPEECH IS CLEAR. HAD REPORTED THAT SOMETIMES HE TALKS TO PEOPLE AND OTHER TIMES HE REMAINS SILENT-DEPENDING ON PATIENT'S MOOD
--- NOTE | 2020-05-02 06:13 | NUR ---
BEDRESTING. MOVES WHEN MOVED BY STAFF. NO DISTRESS NOTED AT THIS TIME
--- NOTE | 2020-05-02 06:33 | NUR ---
INCONTINENT OF URINE. DIAPER CHANGED AND REPOSITIONED. DUODERM REMAINS IN TACT ACROSS BUTTOCKS. PLAN FOR CHANGE TODAY PT TOLERATED ACTIVITY WELL
--- NOTE | 2020-05-02 07:15 | NUR ---
REPORT RECEIVED FROM ALMA TEAGUE. PT RESTING IN BED, FREE FROM DISTRESS. SAFETY PRECAUTIONS IN PLACE. WILL CONTINUE TO MONITOR
--- NOTE | 2020-05-02 11:20 | NUR ---
PHYSICAL THERAPY AT BEDSIDE
--- NOTE | 2020-05-02 11:26 | NUR ---
SPEECH THERAPY AT BEDSIDE
--- NOTE | 2020-05-02 12:08 | NUR ---
Dysphagia Therapy provided. Patient followed cues for lingual ROM exercises. Patient noted with increased lingual movement from prior day, and with lingual weakness. Patient initially tolerated therapeutic trials of thin liquid water without any s/s of aspiration and without any s/s of laryngeal penetration. However, he coughed 1x after swallow of thin liquid water via small, single sip from cup edge. SERVICE RESTORER EMERGENCY informed nurse. Nurse listened to patient's lung sounds. Patient swallowed all trials of honey thickened liquids without overt s/s of aspiration and without overt s/s of laryngeal penetration. 1 tsp portion of puree was trialed, and patient swallowed after delay without overt s/s of aspiration and without overt s/s of laryngeal penetration. Oral cavity was clear after all trials. O2 SATS were WFL throughout entire therapy session. Nurse listened to lung sounds again at end of dysphagia therapy session. Nurse reported they are providing patient with frequent oral care. (SERVICE RESTORER EMERGENCY had provided information that jello is not a thickened liquid at start of session). SERVICE RESTORER EMERGENCY recommended Modified Barium Swallow Study to be performed either at another facility or via mobile MBSS. Patient is currently on diet of honey thickened liquids only, and it seems appropriate to continue current diet as safely tolerated at this time.
--- NOTE | 2020-05-02 12:08 | NUR ---
PT TRANSPORTED VIA STRETCHER TO RADIOLOGY
--- NOTE | 2020-05-02 12:45 | NUR ---
PT RETURNING TO FLOOR VIA STRETCHER ACCOMPAINED BY STAFF. PT TRANSFERED FROM STRETCHER TO BED. PT CLEANED UP AND CHANGED. PT REPOSISTIONED. PT REFUSED LUNCH TRAY. SAFETY PRECAUTIONS IN PLACE. WILL CONTINUE TO MONITOR.
--- NOTE | 2020-05-02 14:35 | NUR ---
PT RESTIN IN BED, WITH EYES CLOSED. NO S/S OF DISTRESS AT THIS TIME. SAFETY PRECAUTIONS IN PLACE. WILL CONTINUE TO MONITOR.
--- NOTE | 2020-05-02 15:30 | NUR ---
MAYELA FROM [facility] CALL . PT SCHEDULED FOR A MODIFIED BARIUM SWALLOW STUDY TOMORROW BETWEEN 10:30 & 11:30 AM. PT WILL NEED TO BE BROUGHT OUT TO [facility]UCK VIA W/C WITH MASK INPLACE. FURTHER INSTRUCTION WILL BE SENT VIA FAX. FAX # PROVIDED. [employer] TO CALL IN AM WITH HOLDEN BARNETT.
--- NOTE | 2020-05-02 15:40 | NUR ---
PT OFF UNIT TO MRI VIA STRETCHER. REMAINS AT BEDSIDE.
--- NOTE | 2020-05-02 15:41 | NUR ---
PT note Patient was seen for bedside sitting. He has strong pelvic thrust and increased tone with effort to the LUE. He is contracted on the LUE due to the long standing strong tone. He is able to sit EOB and sit with SBA of 1 for 2 min. We have also been assessing his swallowing ability in conjunction with BRICK KILN WORKER and BRICK KILN WORKER is strongly recommending MBS which we have attempted to arange through a mobile service. As for his function, he is liited by high tone and pelvic thrust aking him essentially bed bound. His family has done well taking care of him but I would recommend ECF moving forward
--- NOTE | 2020-05-02 17:37 | NUR ---
AT BEDSIDE FEEDING PT.. ALL FLUIDS THICKENED AND PT'S IN HIGH FOWLERS.
--- NOTE | 2020-05-02 19:53 | NUR ---
BEDRESTING. DID NOT SPEAK TO ME AT THIS TIME. OPENED EYES TO VERBAL STIMULI. TOOK THICKENED FLUIDS WHEN GIVEN TO HIM SWALLOWING. NO COUGH OR DROOLING WITH FLUID INTAKE. ONLY TAKES VERY SMALL SIPS THEN HAS A CHEWING LIKE MOTION WITH MOUTH AND SWALLOWS. IV FLUIDS INFUSING AT 10ML/HR VIA #20 IN RIGHT A/C
--- NOTE | 2020-05-02 21:30 | NUR ---
BEDRESTING. LITTLE MOVEMENT INITIATED BY PATIENT. MOANS WHEN MOVED OR REPOSITIONED OR YEALLS OUT "WHERE ARE WE GOING?"
--- NOTE | 2020-05-02 23:30 | NUR ---
BEDRESTING. DRESSING ACROSS BUTTOCKS IS CLEAN/DRY/INTACT. POSITIONING SIDE TO SIDE TO RELEIVE PRESSURE ON THAT AREA
[2020-05-03] VITALS (11 sets, daily range): BP systolic 132–179; BP diastolic 59–87
--- NOTE | 2020-05-03 01:00 | NUR ---
DIAPER WET. CHANGED, CLEANED AND REPOSITIONED-TOLERATED WELL. COOPERATIVE WITH BEING ROLLED SIDE TO SIDE. HELD ONTO BED SIDERALES WHEN ROLLED. COOPERATIVE
--- NOTE | 2020-05-03 02:37 | NUR ---
BEDRESTING. RESP EVEN AND NONLABORED. NO DISTRESS NOTED
--- NOTE | 2020-05-03 04:00 | NUR ---
BEDRESTING. TOLERATES TURNING. NO DISTRESS NOTED
--- NOTE | 2020-05-03 06:00 | NUR ---
BEDRESTING. RESP EVEN AND NONLABORED. IV INFUSING AT 75ML/HR THROUGH #20 IN RIGHT A/C. DRINKS THICKENED FLUIDS OFFERED. URINATED X 1 DURNING NIGHT LAST NIGHT BUT WAS LARGE AMOUNT. SCD'S AND HEEL PROTECTORS REMAIN IN PLACE
--- NOTE | 2020-05-03 06:45 | NUR ---
RECIEVED REPORT FROM ALMA TEAGUE. ASSUMED PT CARE.
--- NOTE | 2020-05-03 06:48 | NUR ---
REPORT GIVEN. BEDRESTING. EYES CLOSED
--- NOTE | 2020-05-03 07:30 | NUR ---
PT ALERT TO SELF, STAFF MUST ANTICIPATE MOST NEEDS, PT MOSTLY NON-VERBAL, SR WITH FREQ PVC'S ON TELEMETRY, HR 64. RESPIRATIONS EVEN/UNLABORED, SAO2 @100% RA. LS CLEAR/DIMINISHED. ABDOMEN SOFT, NON-TENDER, BSX4 HYPOACTIVE, NO BM DOCUMENTED, MD AWARE. HONEY THICK LIQ, PT WITH HEELS OFFLOADED AND HEEL PROTECTORS INPLACE, DRSG TO BUTTOCKS CDI, REPOSITIONING Q2HRS AND PRN. PT REMAINS INC OF URINE WITH GOOD PERICARE PROVIDED. CALL LIGHT IN REACH. WILL MONITOR,
--- NOTE | 2020-05-03 08:00 | NUR ---
DR. SALVADOR AT [facility] FOR ASSMENT AND TO DISCUSS PLAN OF CARE, NEW ORDERS RECIEVED.
--- NOTE | 2020-05-03 08:15 | NUR ---
DIETARY ON UNIT, BREAKFAST TRAY SET UP. VESSEL SLAGMAN ASSISTED PT WITH MEAL. PT TOLERATED WELL.
--- NOTE | 2020-05-03 10:11 | NUR ---
PT REPOSITIONED, PERICARE PROVIDED. PT REMAINS SR WITH FREQ PVC'S ON TELEMETRY. PT RESTING IN BED WITH EYES CLOSED. CALL LIGHT IN REACH. WILL MONITOR.
--- NOTE | 2020-05-03 12:00 | NUR ---
ST AT BEDSIDE, ASKED ABOUT PT APPT TO GET MODIFIED SWALLOW STUDY THAT WAS SCHEDULED BETWEEN 10:30 AND 11:30AM. NURSE WAS INFORMED THAT IT WAS POSTPONED TIL FRIDAY. CONFIRMED WITH MAYELA AT [facility], MAYELA THEN STATED THAT IF "SHOULD" BE TOMORROW THAT SHE WOULD CALL NURSING AT [phone] TO CONFIRM NEW TIME SCHEDULED. DR. SALVADOR NOTIFIED WITH UPDATE.
--- NOTE | 2020-05-03 14:00 | NUR ---
PT RESTING IN BED WITH EYES CLOSED, NO DISTRESS NOTED AT THIS TIME. CALL LIGHT IN REACH. WILL MONITOR.
--- NOTE | 2020-05-03 16:12 | NUR ---
Dysphagia Therapy Provided: Patient swallowed Honey Thickened Liquids without overt s/s of aspiration and without overt s/s of laryngeal penetration. Patient swallowed therapeutic trials of puree without overt s/s of aspiration and without overt s/s of laryngeal penetration, when fed by WATER SYSTEMS DESIGNER; however, his swallow is very delayed with pureed bolus trials.
--- NOTE | 2020-05-03 16:44 | NUR ---
SAMANTHA WITH PT ARRIVED AT BEDSIDE WELL PT WITH PT MEDICATIONS, LIST OBTAINED WILL LEAVE ON CHART FOR PHARMACY.
--- NOTE | 2020-05-03 17:41 | NUR ---
PT note Spouse was in the room. I asked if the patient was going home upon discharge. She appeared confused and stated he was staying here. She did tell me that on a recent hospital admission to [place], the staff had wanted to talk to her about hospice, advanced directives and no code. She told she felt that was evil and she would have nothing to do with it. The patient was seen for ROM and tone rediction to the left extremities. About 5 minutes into PNF PROM stretching and ROM he began asking me to stop. He is able to move the left wrm independently at times but prefers to hold it still. We have set him up for MBS study in an attempt to have him safely nourished. Spouse is adamant that she will take him home. Incidentally, she is not able to lift or take care of him. She tells me that friends come by int he morning and put hiim in a chair and then come by and the evening and put him to bed
--- NOTE | 2020-05-03 18:06 | NUR ---
DIETARY ON UNIT, DINNER TRAY SET UP. THICKENED LIQUIDS, AT BEDSDIE TO FEED PT. WILL MONITOR.
--- NOTE | 2020-05-03 19:35 | NUR ---
PT IS AWAKE, LAYS WITH HOB NEAR 45 DEGREES, ALERT AND ORIENTED TO HIS NAME ONLY. PATIENT ABLE TO FOLLOW COMMANDS. IS HARD OF HEARING, NEEDS REPETITION. NEURO CHECK PERFORMED. POC DISCUSSED FOR TONIGHT, PATIENT NODS HIS HEAD YES. ON RA, SATS 97%, NO SOB NOTED. SR ON TELE. HR 70'S. BP 130'S SISTOLIC, CURRENT OV ON RAC LEAKING, WILL CHANGE. NS AT 10 ML/HR STOPPED FOR NOW. HEEL PROTECTORS, HEELS ELEVATED. SCD'S ON. NO COMPLAINTS OR NEEDS AT THIS TIME. CALL LIGHT WITHIN REACH.
--- NOTE | 2020-05-03 22:27 | NUR ---
PT SAT UP IN HIGH RUBIO'S, NEEDED REPETITIVE VERBAL CUEING TO SWALLOW HIS MEDS, HONEY THICKENED CONSISTENCY. PT ABLE TO SWALLOW. NO COUGHING NOTED. PT STIIL IN HIGH RUBIO'S NOW TO PREVENT ASPIRATION. NEW IV PLACED ON RFA 22 G, PT ABLE TO TOLERATE. CALL LIGHT WITHIN REACH.
[2020-05-04] VITALS (12 sets, daily range): BP systolic 137–181; BP diastolic 69–94
--- NOTE | 2020-05-04 02:00 | NUR ---
PT RESTS WITH HOB NEAR 30 DEGREES. RESTS WITH EYES CLOSED. NO ACUTE DISTRESS SHOWN. CALL LIGHT WITHIN REACH.
--- NOTE | 2020-05-04 04:18 | NUR ---
PROBATE PARALEGAL INR OOM TO PROVIDE GRAHAM CRAE AND REPOSITION SHE HAS BEEN DOING THROUGH THE NIGHT. PT IN NO ACUTE DISTRESS. CALL LIGHT WITHIN REACH.
--- NOTE | 2020-05-04 08:30 | NUR ---
PATIENT ALERT, SITTING UPRIGHT IN BED, NO SIGNS OF ACUTE DISTRESS, ROUTINE ASSESSMENT COMPLETED AT THIS TIME.
--- NOTE | 2020-05-04 10:30 | NUR ---
PATIENT RESTING IN BED, NPO AT THIS TIME PEDNING MODIFIED BARIUM SWALLOW STUDY TO BE COMPLETED THIS AM, DENIES ANY PAIN OR OTHER CONCERNS AT THIS TIME.
--- NOTE | 2020-05-04 12:15 | NUR ---
PATIENT SLEEPING WITH NO SIGNS OF DISTRESS, STILL NPO AT THIS TIME AWAITING SWALLOW TEST PREVIOUSLY DOCUMENTED, VITAL SIGNS STABLE.
--- NOTE | 2020-05-04 14:48 | NUR ---
pt was seen for transfer to [facility] for swallow study. Supine to sitting on EOB with max A. Max assist transfer from bed to /. After swallow study max transfer from w/ back to bed where he was left with nursing.
--- NOTE | 2020-05-04 15:00 | NUR ---
INCONTINENT OF LARGE YELLOW URINE; HYGIENE PROIVDED AND PT REPOSITIONED WITH PILLOWS; HOB ELEVATED. AT BEDSIDE.
--- NOTE | 2020-05-04 18:00 | NUR ---
AT BEDSIDE TO ASSIST WITH DINNER; PT REMAINS ON THICKENED LIQUIDS AND ASPIRATION PRECAUTIONS. SCDS INTACT TO BLE. IV FLUIDS INFUSING AT KVO INTO 22G IV IN RFA; IV SITE APPEARS HEALTHY AND FLUSHES. NO SIGNS OF DISTRESS. NEEDS ARE ANTICIPATED BY STAFF.
--- NOTE | 2020-05-04 19:00 | NUR ---
PATIENT RESTS WITH HOB NEAR 45 DEGREES. RESTS WITH EYES CLOSED. NO ACUTE DISTRESS SHOWN. CALL LIGHT WITHIN REACH.
--- NOTE | 2020-05-04 19:30 | NUR ---
PATIENT AWAKENS EASILY WHEN SPOKEN TO. FOLLOWS DIRECTIONS. ORIENTED TO NAME ONLY, IS ABLE TO SPEAK CLEARLY, NO CHANGES. HOB NEAR 45 DEGREES. NURSE ASSESSMENT PERFORMED. RFA IV INTACT, NS AT 10 ML/HR. HEELS ELEVATED, HEEL PROTECTORS IN PLACE, SCD'S REPOSITIONED. PT IS HARD OF HEARINF, REQUIRES REPETITIONS, IS ABLE TO ANSWER SIMPLE QUESTIONS. SATS 100% ON RA, NO SOB NOTED. SR ON TELE, HR RANGES 70'S. BP 150'S SYSTOLIC. CALL LIGHT WITHIN REACH.
--- NOTE | 2020-05-04 20:49 | NUR ---
PT REPOSITIONED. NO ACUTE DISTRESS SHOWN. HEELS MAINTAINED ELEVATED. TV TURNED OFF PER REQUEST. CALL LIGHT WITHIN REACH.
--- NOTE | 2020-05-04 22:20 | NUR ---
PATIENT HOB IN HIGH RUBIO'S TO BE ABLE TO PROVIDE PM MEDS, PT STATES, "WHY YOU PUT ME UP?" EXPLAINED TO PATIENT TO PREVENT ASPIRATION. GIVEN WITH JELLO AND HONEY THICKENED WATER, PT ABLE TO SWALLOW WITH REPETITIVE VERBAL CUEING, PT ABLE TO LET ME KNOW WHEN HE WAS READY TO TAKE SIPS OF WATER. PT NOW IN HIGH RUBIO'S. NO ACUTE DISTRESS SHOWN. CALL LIGHT WITHIN REACH.
--- NOTE | 2020-05-04 22:56 | NUR ---
PT TURNED, GRAHAM CRAE PROVIDED. HOB 30 DEGREES. NO ACUTE DISTRESS SHOWN. CALL LIGHT WITHIN REACH.
[2020-05-05 00:01] VITALS: BP 158/82
[2020-05-05 02:06] VITALS: BP 101/66
--- NOTE | 2020-05-05 02:51 | NUR ---
PT REPOSITIONED, GRAHAM CRAE PROVIDED. PT IN NO ACUTE DISTRESS. CALL LIGHT WITHIN REACH.
--- NOTE | 2020-05-05 05:54 | NUR ---
PATIENT RESTS WITH HOB 30 DEGREES, RESTS WITH EYES CLOSED. NO ACUTE DISTRESS SHOWN. CALL LIGHT WITHIN REACH.
--- NOTE | 2020-05-05 08:15 | NUR ---
PATIENT SITTING IN BED, SEMI-FOWLERS, NO SIGNS OF DISTRESS NOTED. DROWSY BUT EASILY AROUSABLE, VITAL SIGNS STABLE, ROUTINE ASSESSMENT COMPLETED AT THIS TIME. IV CLEAN, DRY, INTACT. DENIES ANY PAIN AT THIS TIME.
[2020-05-05 08:35] VITALS: BP 141/73
--- NOTE | 2020-05-05 09:52 | NUR ---
Dysphagia Therapy: Patient swallowed therapeutic trials of Puree and [place]ayson Thickened Liquids without overt s/s of aspiration and without overt s/s of laryngeal penetration and without oral residue. LE[employer] DEVELOPER provided education to nurse on safe swallow strategies and aspiration precautions, such as upright at 90 degrees when feeding, slow rate of feeding, verbal cues to swallow, wait for patient to swallow (his swallow is delayed), oral checks, oral care.
[2020-05-05 10:30] VITALS: BP 135/73
--- NOTE | 2020-05-05 10:30 | NUR ---
PATIENT CHANGED, REPOSITIONED AND PERICARE PROVIDED. STILL WITH NO BM. DRESSING TO BUTTOCKS CLEAN, DRY, INTACT. IV IN PLACE WITHOUT COMPLICATIONS. VITAL SIGNS STABLE. CALL LIGHT WITHIN REACH. BED IN LOW POSITION.
--- NOTE | 2020-05-05 11:44 | NUR ---
patient was seen for BLE PROM and RLE therex. Plantar flexion 2x10 and dorsiflexion 2x10 on RLE. Gentle stretching of LLE including digits to decrease hypertonicity. ampac=6
[2020-05-05] MEDS ORDERED: ADLT ASA LOW81 MG PO ×2 (12:09)
[2020-05-05 12:45] VITALS: BP 133/87
--- NOTE | 2020-05-05 13:00 | NUR ---
PATIENT BEING DISCHARGED AT THIS TIME. IV DICSONTINUED WITHOUT COMPLICATIONS. ASSISTED WITH DRESSING PATIENT AND PERICARE. DISCHARGE INSTRUCTIONS PROVIDED. HOME HEALTH REFERRAL IN PLACE PER CASE MANAGEMENT. VITAL SIGNS STABLE. NO ACUTE DISTRESS NOTED. [facility] IN ROUTE TO TRANSPORT PATIENT HOME. NO FURTHER CONCERNS AT THIS TIME.
[2020-06-24] MEDS ORDERED: COREG12.5 MG PO (11:18)
[2020-06-24] MEDS ORDERED: LOSARTAN POTASS25 MG PO (11:19)
[2020-06-24] MEDS ORDERED: ASPIRIN 81 LOW81 MG PO (11:20)
[2020-06-24] MEDS ORDERED: PRAVASTATIN SOD20 MG PO (11:21)
[2020-06-24] MEDS ORDERED: FINASTERIDE5 MG PO (11:21)
[2020-06-24] MEDS ORDERED: LASIX 40 MG TAB40 MG PO (11:22)
[2020-06-29] MEDS ORDERED: DOXYCYCL HYC100 MG PO (10:59)
[2020-06-29] MEDS ORDERED: KEFLEX500 M1 PO (11:10)
== END 2020-05-05 14:20 | disposition home health service (06) | DRG 69 ==
LOC: ED 13:38 → ED-I 15:33 → ED 15:47 → ICU 15:48 → ED-I 15:48 → MS2 16:05 → ICU 16:12
PROVIDERS: ADMIT Internal Medicine; ATTEND Internal Medicine
DX: G45.9 Transient cerebral ischemic attack, unspecified (principal); I69.354 Hemiplegia and hemiparesis following cerebral infarction affecting left non-dominant side; I10 Essential (primary) hypertension; I25.10 Atherosclerotic heart disease of native coronary artery without angina pectoris; F03.90 Unspecified dementia, unspecified severity, without behavioral disturbance, psychotic disturbance, mood disturbance, and anxiety; I48.91 Unspecified atrial fibrillation; E78.5 Hyperlipidemia, unspecified; H91.90 Unspecified hearing loss, unspecified ear; R13.10 Dysphagia, unspecified; I27.20 Pulmonary hypertension, unspecified; N40.0 Benign prostatic hyperplasia without lower urinary tract symptoms; Z99.3 Dependence on wheelchair; Z95.5 Presence of coronary angioplasty implant and graft; Z95.1 Presence of aortocoronary bypass graft; Z20.828 Contact with and (suspected) exposure to other viral communicable diseases
CPT/HCPCS: A9579; J1650